=== PATIENT | female | born 2000 | race Caucasian/White ===

== ENCOUNTER 2022-04-04 20:06 | Emergency (ER) | payer BC ==
[~2022-04-04] VITALS: Ht 170.2 cm; Wt 63.5 kg
[2022-04-04 20:13] VITALS: BP_SYST 124
--- NOTE | 2022-04-04 20:13 | NUR ---
Patient triaged and placed in ER bed 1 for evaluation. Vital signs updated, patient c/o 9/10 LLQ abdominal pain at this time. Report given to MARTIN Gresham for continuity of care. Significant other at bedside. Instructed to notify ED staff for any changes in condition or worsening of symptoms. Patient verbalized understanding.
[2022-04-04 20:59] LABS: BASOPHILS % (AUTO) 0.2 % (0.0-2.0); EOSINOPHILS # (AUTO) 0.1 K/uL (0.0-0.4); EOSINOPHILS % (AUTO) 0.8 % (0.0-4.0); HEMATOCRIT 36.7 % (36-48); HEMOGLOBIN 12.6 g/dL (12.0-16.0); LYMPHOCYTES % (AUTO) 15.5 % (20.5-51.5); MEAN CORPUSCULAR HEMOGLOBIN 31 pg (27-31); MEAN CORPUSCULAR HGB CONC 34 % (32-36); MEAN CORPUSCULAR VOLUME 90 fL (79.0-98.0); MONOCYTES # (AUTO) 0.4 K/uL (0.0-1.0); MONOCYTES % (AUTO) 2.7 % (1.7-9.3); NEUTROPHILS # (AUTO) 10.5 K/uL (1.8-7.7); NEUTROPHILS % (AUTO) 80.8 % (40.0-70.0); PLATELET COUNT (AUTO) 267 K/uL (130-430); RED BLOOD CELL COUNT(AUTO) 4.07 MIL/uL (4.2-6.2); RED CELL DISTRIBUTION WIDTH 12.5 % (9.0-15.0)
[2022-04-04] MEDS ORDERED: ONDANSETRON HCL 4 MG/2 ML VIAL IVP ONE (21:15)
[2022-04-04] MEDS ORDERED: MORPHINE 4 MG INJ. 4 MG/ML VIAL IVP ONE (21:15)
--- NOTE | 2022-04-04 21:30 | NUR ---
Pt off to ultrasound per male visitor.
[2022-04-04 21:38] LABS: CALCIUM 8.8 mg/dL (8.4-11.0); CREATININE 0.62 mg/dL (0.55-1.30)
[2022-04-04 21:53] LABS: BILIRUBIN,URINE NEGATIVE (NEGATIVE); BLOOD, URINE 3+ (NEGATIVE); COLOR,URINE YELLOW (YELLOW); GLUCOSE,URINE NEGATIVE (NEGATIVE); KETONES,URINE 1+ (NEGATIVE); LEUKOCYTE ESTERASE ,URINE TRACE (NEGATIVE); NITRITE, URINE NEGATIVE (NEGATIVE); PH,URINE 5.5 (5.0-8.0); PROTEIN URINE NEGATIVE (NEGATIVE); UROBILINOGEN,URINE 0.2 (0.2-1.0)
[2022-04-04 22:03] LABS: ALBUMIN 3.8 g/dL (3.4-4.8); C-REACTIVE PROTEIN QUANT 0.4 mg/dL (0-0.5); TOTAL BILIRUBIN 0.3 mg/dL (0.0-1.0)
[2022-04-04 22:12] LABS: CLARITY/URINE HAZY (CLEAR)
[2022-04-04 22:17] LABS: BACTERIA,URINE FEW /HPF (None Seen); MUCUS,URINE 2+ /LPF (None Seen)
[2022-04-04] MEDS ORDERED: MORPHINE 2 MG/ML INJ. SYRINGE IVP ONE (23:15)
[2022-04-04] MEDS ORDERED: NACL 0.9% 1,000 ML IV ONE (23:15)
[2022-04-04] MEDS ORDERED: HYDR-3917 PO (23:19)
[2022-04-04] MEDS ORDERED: ONDA-8 TL (23:19)
[2022-04-04] MEDS ORDERED: NITR-85 PO (23:21)
[2022-04-05 00:30] VITALS: BP_SYST 115
--- NOTE | 2022-04-05 00:30 | NUR ---
Patient given written and verbal discharge instructions and verbalizes understanding. ER MD discussed with patient the results and treatment provided. Patient in stable condition. ID arm band removed. IV catheter removed intact and dressing applied, no active bleeding.Rx of hydrocodone/acetaminophen, nitrofuantoin, and ondansetron given. Patient educated on pain management and to follow up with PMD. Opportunity for questions provided and answered.
== END 2022-04-05 00:30 | disposition home or self-care (01) ==
LOC: SED 20:06
DX: O26.831 Pregnancy related renal disease, first trimester (principal); N28.89 Other specified disorders of kidney and ureter; Z3A.13 13 weeks gestation of pregnancy; Z79.899 Other long term (current) drug therapy
CPT/HCPCS: 99285; 96374; 76770; 96361; 96375; 80053; 81000; 82150; 84702; 83690; 85025; 86140; 36415; 76802; 96376; 81025; J2405; J2270 ×2; J7030